=== PATIENT | male | born 1970 | race Caucasian/White ===

== ENCOUNTER 2019-09-29 11:00 | Emergency (ER) | payer MEDICAID ==
[~2019-09-29 11:00] MED LIST: ACET1TAB12 PO
== END 2019-09-29 12:19 | disposition home or self-care (01) ==
LOC: EDH 11:00
DX: J95.03 Malfunction of tracheostomy stoma (principal); R06.02 Shortness of breath; Z87.891 Personal history of nicotine dependence; Z95.1 Presence of aortocoronary bypass graft
CPT/HCPCS: 99281